=== PATIENT | male | born 1955 | race Caucasian/White ===

== ENCOUNTER 2021-01-29 05:56 | Day surgery (SDC) | payer OTHER ==
[~2021-01-29] VITALS: Ht 172.7 cm; Wt 87.1 kg
[~2021-01-29 05:56] MED LIST: CALCI17 PO; LISINOPRIL5 MG PO; MULTI 50+ PO; PROTONIX20 M1 PO; TAMSULOSIN HCL0.4 MG PO; TERAZOSIN5 MG PO; VITAMIN D PO; [UNRECOGNIZED DRUG - OTHER] PO
[2021-01-29] MEDS ORDERED: CIPROFLOXACN500 MG PO (08:25)
[2021-01-29 08:35] VITALS: BP 152/91
== END 2021-01-29 08:40 | DRG 726 ==
LOC: ORM 05:56
PROVIDERS: ATTEND Urology
PROC: 0VB03ZX Excision of Prostate, Percutaneous Approach, Diagnostic (ICD-10-PCS; principal; 2021-01-29)
DX: N40.1 Benign prostatic hyperplasia with lower urinary tract symptoms (principal); R39.12 Poor urinary stream; R35.1 Nocturia; I10 Essential (primary) hypertension; J45.909 Unspecified asthma, uncomplicated; K21.9 Gastro-esophageal reflux disease without esophagitis
CPT/HCPCS: J1956